=== PATIENT | female | born 2000 | race Two or more races ===

== ENCOUNTER 2022-08-10 08:00 | Inpatient (IN) | payer OTHER ==
[2022-08-10] MEDS ORDERED: PROMETHAZINE HCL 25 MG/1 ML VIAL IVPUSH ONE (09:31)
[2022-08-10] MEDS ORDERED: BUTORPHANOL TARTRATE 1 MG/ML VIAL IVPUSH PRN (09:31)
[2022-08-10] MEDS ORDERED: DINOPROSTONE 10 MG VAGINAL SUPPOSITORY VG ONE (09:32)
[2022-08-10] MEDS: DEXTROSE 5%-LACTATED RINGERS 1,000 ML IV SCH (09:40)
[2022-08-10 10:21] LABS: BASO % 0.1 % (0-2.0); EOS % 0.6 % (0-4.5); HEMATOCRIT 37.8 % (32.4-45.2); HEMOGLOBIN 12.7 GM/dL (10.7-15.3); LYMPH % 10.3 % (8-40); MCH 28.3 pg (25.7-33.7); MCHC 33.6 g/dl (32.0-36.0); MEAN CELL VOLUME 84.3 fl (80-96); MEAN PLT VOLUME 8.2 fl (7.5-11.1); PLATELET COUNT 206 10^3/uL (134-434); RBC 4.48 M/mm3 (3.60-5.2); RDW 13.8 % (11.6-15.6); WHITE BLOOD COUNT 8.7 K/mm3 (4.0-10.0)
[2022-08-10 10:31] LABS: INR 0.89 (0.83-1.09); PROTHROMBIN TIME (PATIENT) 10.2 SEC (9.7-13.0)
[2022-08-10 10:34] LABS: ACTIVATED PTT 29.6 SECONDS (25.2-36.5)
[2022-08-10 10:45] LABS: CALCIUM 8.8 mg/dL (8.5-10.1)
[2022-08-10 10:46] LABS: BLOOD UREA NITROGEN 6.1 mg/dL (7-18)
[2022-08-10 10:48] LABS: CREATININE 0.6 mg/dL (0.55-1.3)
[2022-08-10 11:35] VITALS: BMI 29.8
[2022-08-10] MEDS ORDERED: OXYTOCIN 30 UNITS in 0.9% NS 30 UNIT/500 ML INFUS.BAG IVPB SCH (12:15)
[2022-08-10 12:55] LABS: HIV INTERPRETATION NEGATIVE (NEGATIVE)
[2022-08-10] MEDS ORDERED: BUTORPHANOL TARTRATE 2 MG/ML VIAL ONE ×2 (14:42→20:46)
[2022-08-10] MEDS ORDERED: PROMETHAZINE HCL 25 MG/1 ML VIAL ONE ×2 (14:42→20:46)
[2022-08-10] MEDS ORDERED: FENTANYL/BUPIVACAINE/NS/PF - PCEA - 50 ML DISP.SYRIN EP ONE (20:24)
[2022-08-10] MEDS ORDERED: PROMETHAZINE HCL 25 MG/1 ML VIAL IVPB ONE (20:55)
[2022-08-10] MEDS ORDERED: BUTORPHANOL TARTRATE 2 MG/ML VIAL IVPUSH ONE (20:55)
[2022-08-11] MEDS: DEXTROSE 5%-LACTATED RINGERS 1,000 ML IV SCH (03:00)
[2022-08-11] MEDS ORDERED: PROMETHAZINE HCL 25 MG/1 ML VIAL ONE (04:19)
[2022-08-11] MEDS ORDERED: BUTORPHANOL TARTRATE 2 MG/ML VIAL ONE (04:19)
[2022-08-11] MEDS ORDERED: BUTORPHANOL TARTRATE 2 MG/ML VIAL IVPB ONE (04:25)
[2022-08-11] MEDS ORDERED: PROMETHAZINE HCL 25 MG/1 ML VIAL IVPB ONE (04:25)
[2022-08-11] MEDS ORDERED: FENTANYL/BUPIVACAINE/NS/PF - PCEA - 50 ML DISP.SYRIN EP ONE (09:23)
[2022-08-11] MEDS ORDERED: IBUPROFEN 600 MG TABLET (FP) PO ONE (09:24)
[2022-08-11] MEDS ORDERED: NALOXONE HCL 0.4 MG/ML VIAL IVPUSH PRN (09:28)
[2022-08-11] MEDS ORDERED: FENTANYL/BUPIVACAINE/NS/PF - PCEA - 50 ML DISP.SYRIN EP SCH (09:30)
[2022-08-11] MEDS ORDERED: FENTANYL CITRATE/PF 50 MCG/ML VIAL ONE (09:30)
[2022-08-11 10:45] VITALS: RESP 18
[2022-08-11] MEDS ORDERED: OXYTOCIN 30 UNITS in 0.9% NS 30 UNIT/500 ML INFUS.BAG IVPB ONE (12:15)
[2022-08-11] MEDS ORDERED: LIDOCAINE HCL 1% PRESERVATIVE FREE - 30ML VIAL ONE (12:24)
[2022-08-11] MEDS ORDERED: MISOPROSTOL 100 MCG TABLET ONE (12:31)
[2022-08-11] MEDS ORDERED: MISOPROSTOL 200 MCG TABLET ONE (12:47)
[2022-08-11] MEDS ORDERED: BENZOCAINE 28 GM HEMORRHOIDAL OINTMENT TP PRN (13:05)
[2022-08-11] MEDS ORDERED: BENZOCAINE 20% 57 GM BOTTLE TP PRN (13:05)
[2022-08-11] MEDS ORDERED: BISACODYL 10 MG SUPP.RECT RC PRN (13:05)
[2022-08-11] MEDS ORDERED: ACETAMINOPHEN 325 MG TABLET (FP) PO PRN (13:05)
[2022-08-11] MEDS ORDERED: WITCH HAZEL 50% (TUCKS) 40 PAD/JAR PAD TP PRN (13:05)
[2022-08-11] MEDS ORDERED: MISOPROSTOL 200 MCG TABLET NR ONE (13:06)
[2022-08-11] MEDS ORDERED: MISOPROSTOL 100 MCG TABLET PV ONE (13:06)
[2022-08-11] MEDS ORDERED: OXYTOCIN 20 UNITS in 0.9% NS 20 UNIT/1,000 ML INFUS.BAG IV SCH (13:15)
[2022-08-11 13:37] LABS: CORD BASE EXCESS -4.1 mmol/L (0-2); CORD HCO3 24.9 mmHg (20-29); CORD PCO2 61.2 mmHg (30-78); CORD pH 7.228 (7.14-7.44)
[2022-08-11 13:39] LABS: CORD HCO3 24.4 mmHg (20-29); CORD PCO2 68.8 mmHg (30-78); CORD pH 7.168 (7.14-7.44)
[2022-08-11] MEDS: IBUPROFEN 600 MG TABLET (FP) PO PRN ×2 (17:08→20:53)
[2022-08-12 09:04] LABS: BASO % 0.3 % (0-2.0); HEMATOCRIT 32.6 % (32.4-45.2); HEMOGLOBIN 10.9 GM/dL (10.7-15.3); LYMPH % 13.7 % (8-40); MCH 28.6 pg (25.7-33.7); MCHC 33.5 g/dl (32.0-36.0); MEAN CELL VOLUME 85.5 fl (80-96); MEAN PLT VOLUME 8.5 fl (7.5-11.1); MONO % 4.7 % (3.8-10.2); NEUT % 80.3 % (42.8-82.8); PLATELET COUNT 189 10^3/uL (134-434); RBC 3.81 M/mm3 (3.60-5.2); RDW 14.5 % (11.6-15.6); WHITE BLOOD COUNT 12.2 K/mm3 (4.0-10.0)
[2022-08-12] MEDS ORDERED: FLU VACC QS2022-23(6MOS UP)/PF 60 MCG/0.5 ML SYRINGE IM ONE (10:00)
[2022-08-12] MEDS: IBUPROFEN 600 MG TABLET (FP) PO PRN (19:24)
[2022-08-12] MEDS ORDERED: SENNOSIDES/DOCUSATE COMBO (SENNA PLUS) TABLET (UD) PO PRN (22:00)
[2022-08-13 10:43] VITALS: BP 101/64; PULSE 87; TEMP 98.1
== END 2022-08-13 13:05 | disposition home or self-care (01) | DRG 560 ==
LOC: JDEL 08:00 → JLDR 09:25 → J3W 08-11 15:20
PROVIDERS: ADMIT Obstetrics & Gynecology; ATTEND Obstetrics & Gynecology
PROC: 10E0XZZ Delivery of Products of Conception, External Approach (ICD-10-PCS; principal; 2022-08-11)
PROC: 0HQ9XZZ Repair Perineum Skin, External Approach (ICD-10-PCS; 2022-08-11)
PROC: 0W8NXZZ Division of Female Perineum, External Approach (ICD-10-PCS; 2022-08-11)
DX: O70.0 First degree perineal laceration during delivery (principal); O42.92 Full-term premature rupture of membranes, unspecified as to length of time between rupture and onset of labor; O46.93 Antepartum hemorrhage, unspecified, third trimester; Z3A.38 38 weeks gestation of pregnancy; Z37.0 Single live birth
CPT/HCPCS: 36415; 36600; 59409; 80048; 82803; 83655; 85025; 85610; 85730; 86780; 86850; 86900; 86901; 87389; C9803-CS; G0008; Q2036; U0003; U0005